=== PATIENT | male | born 1975 | race Hispanic/Latino ===

== ENCOUNTER → 2020-08-15 | Outpatient (CLI) | payer BC | END | disposition home or self-care (01) | LOC: RAH 08:39 | PROVIDERS: ATTEND Urology | DX: N20.0 Calculus of kidney (principal); N20.1 Calculus of ureter | CPT/HCPCS: 74176 ==

== ENCOUNTER → 2020-09-03 | Outpatient (CLI) | payer BC | END | disposition home or self-care (01) | LOC: RAH 09:11 | PROVIDERS: ATTEND Urology | DX: N50.812 Left testicular pain (principal); I86.1 Scrotal varices | CPT/HCPCS: 76870 ==

== ENCOUNTER 2024-07-15 16:45 | Emergency (ER) | payer BC ==
[~2024-07-15] VITALS: Ht 172.7 cm; Wt 88.9 kg
[2024-07-15] MEDS: ketOROlac 30MG VIAL (30MG/ML) IM ONE (17:31)
--- NOTE | 2024-07-15 18:07 | HMCIMG ---
FOOT COMP 3+VWS RT INDICATION: pain/swelling TECHNIQUE: FOOT COMP 3+VWS RT. FINDINGS AND IMPRESSION: Nondisplaced oblique fracture of the proximal fifth metatarsal. There is mild soft tissue swelling No radiopaque foreign body is identified.
[2024-07-15] MEDS ORDERED: KETO10TA2 PO (18:12)
--- NOTE | 2024-07-15 18:17 | ERN ---
General Chief Complaint: FOOT INJURY/PAIN Stated Complaint: FOOT PAIN Time Seen by MD: 16:51 Time Seen by Midlevel: 16:51 Source: patient History of Present Illness Initial Comments The patient is a 49-year-old male presenting to the emergency department with persistent pain to his right foot. He denies any direct injury or twisting injury. Denies any direct blow. Allergies: Coded Allergies: No Known Drug Allergies (Unverified Allergy, Unknown, 07/15/24) Home Meds Active Scripts Ketorolac Tromethamine (Ketorolac Tromethamine) 10 Mg Tablet, 1 TAB PO TID for pain for 5 Days, #15 TAB 0 Refills Prov:JOSELYN DARBY 07/15/24 Past Medical History Past Medical History: Other Medical History Other: PACE [employer]ER Past Surgical History: Pacer/AICD ROS Dictation CONSTITUTIONAL: Negative except for HPI HEAD/FACE: Negative except for HPI EENT: Negative except for HPI RESPIRATORY: Negative except for HPI GASTROINTESTINAL/ABDOMINAL: Negative except for HPI GENITOURINARY: Negative except for HPI MUSCULOSKELETAL: Negative except for HPI INTEGUMENTARY: Negative except for HPI NEUROLOGICAL/PSYCH: Negative except for HPI HEMATOLOGIC/LYMPHATIC: Negative except for HPI All Systems Negative, Except as noted above. 13 point review of systems assessed and all negative except for above. Physical Exam Physical Exam Dictation PHYSICAL EXAM: GENERAL: alert,, awake oriented x 3 HEENT: EOMI, Sclera non icteric, moist mucosa NECK: Supple, no JVD, trachea midline LUNGS: Clear breath sounds bilaterally. No wheezes HEART: Regular rate and rhythm. Normal S1 and S2, without murmurs ABD: Abdomen soft, nontender. Bowel sounds present EXT: No clubbing or cyanosis, NEURO: Alert and oriented to person, follows commands MDM MDM: Differential diagnosis: Fracture, contusion, dislocation There are no social concerns with this patient. Prescription drug management Prescriptions will include: Toradol Medical management and examination interpretation discussions were had by me with other qualified healthcare professionals as indicated for the patient's care. ED Course Orders Procedure Category Date Status Time Ketorolac PHA 07/15/24 Complete Tromethamine 30mg/Ml 17:30 Foot Comp 3+Vws Rt RAD 07/15/24 Resulted 17:13 *Nursing CPOE 07/15/24 Transmitted Communication: 18:11 Crutches W/Training CPOE 07/15/24 Transmitted (Er) 18:11 Current Medications Medications (Trade) Dose Ordered Sig/Stewart Route PRN Reason Start Time Stop Time Status Last Admin Dose Admin Ketorolac Tromethamine (toRADol) 30 mg ONCE ONCE IM 07/15/24 17:30 07/15/24 17:31 DC 07/15/24 17:31 Vital Signs Date Time Temp Pulse Resp B/P (MAP) Pulse Ox O2 Delivery O2 Flow Rate FiO2 07/15/24 17:25 98.2 89 16 148/78 97 Room Air* 0 21 07/15/24 16:47 98.2 103 16 152/96 97 Room Air 0 [facility] [address] [id number] IMAGING REPORT Signed PATIENT: TERRENCE DARBY MR#: [id number] : 1975 SEX: M AGE: 49 LOCATION: [facility] ORDER 13 STATUS: REG ER REPORT#: [id number] SERVICE 12 REASON: pain/swelling ORDERING PHYSICIAN: JOSELYN DARBY PROCEDURE: FT 3VW RT - FOOT COMP 3+VWS RT FOOT COMP 3+VWS RT INDICATION: pain/swelling TECHNIQUE: FOOT COMP 3+VWS RT. FINDINGS AND IMPRESSION: Nondisplaced oblique fracture of the proximal fifth metatarsal. There is mild soft tissue swelling No radiopaque foreign body is identified. DICTATED BY: LENIN LAW MD DATE: 07/15/241802 ELECTRONICALLY SIGNED BY: LENIN LAW MD DATE: 07/15/241806 DX & DISP Disposition: Discharge Departure Impression: Primary Impression: Fracture of fifth metatarsal bone of right foot Condition: Stable Scripts Ketorolac Tromethamine (Ketorolac Tromethamine) 10 Mg Tablet 1 TAB PO TID for pain for 5 Days, #15 TAB 0 Refills Prov: JOSELYN DARBY 07/15/24 Additional Instructions: Your right foot x-ray shows a nondisplaced oblique fracture of the proximal 5th metatarsal. You were put in a orthopedic boot. You will need to follow up with senior capital markets specialist this upcoming week for outpatient evaluation. I have given you a prescription for Toradol which should help with your pain. Please use the crutches and refrain from bearing any weight to your right foot. Referrals: NONE (PCP) KIRILL CASTELLANOS MD Time of Disposition: 18:12 I have reviewed the case, and I agree with, Diagnosis and Plan I performed the substantive portion of the visit. I have reviewed and personally made and approve the management plan that is documented in the note by myself or the SURAJ. I acknowledge for responsibility for the patient's management plan. JOSELYN DARBY Jul 15, 2024 18:16
[2024-07-15 18:39] VITALS: BP 140/80; PULSE 90; RESP 16; TEMP 98; O2SAT 100
== END 2024-07-15 18:39 | disposition home or self-care (01) ==
LOC: EDH 16:45
DX: S92.351A Displaced fracture of fifth metatarsal bone, right foot, initial encounter for closed fracture (principal); Z95.810 Presence of automatic (implantable) cardiac defibrillator; X50.1XXA Overexertion from prolonged static or awkward postures, initial encounter; Y93.89 Activity, other specified; Y92.89 Other specified places as the place of occurrence of the external cause; Y99.8 Other external cause status
CPT/HCPCS: 99284; 73630; 96372; J1885